=== PATIENT | female | born 1995 | race African-American/Black ===

== ENCOUNTER 2017-03-14 16:14 | Emergency (ER) | payer OTHER ==
[~2017-03-14] VITALS: Ht 157.5 cm; Wt 59.0 kg
== END 2017-03-14 18:10 | disposition home or self-care (01) ==
LOC: CED 16:14 → CFTX 16:14
DX: Z32.01 Encounter for pregnancy test, result positive (principal); O99.331 Smoking (tobacco) complicating pregnancy, first trimester; F17.200 Nicotine dependence, unspecified, uncomplicated
CPT/HCPCS: 84703; 99282